=== PATIENT | male | born 2000 | race Caucasian/White ===

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

== ENCOUNTER 2018-01-04 09:59 | Inpatient (IN) | payer BC ==
[2018-01-03 15:15] VITALS: BMI 21.6
[2018-01-04 11:20] LABS: #Eosinphils 0.2 thou/uL (0.0-0.7); #Lymphocytes 1.3 thou/uL (1.20-3.40); #Monocytes 0.7 thou/uL (0.11-0.59); #Neutrophils 3.9 thou/uL (1.40-6.50); %Basophils 0.6 % (0.0-1.0); %Eosinophils 3.5 % (0.0-10.0); %Lymphocytes 20.8 % (28.0-48.0); %Monocytes 10.8 % (0.0-4.0); %Neutrophils 64.3 % (31.0-61.0); Hemoglobin 10.3 g/dL (14.0-18.0); Mean Corpuscular HGB CONC 31.1 g/dL (32.0-36.0); Mean Corpuscular Hemoglobin 22.1 pg (25.0-35.0); Mean Corpuscular Volume 71.2 fl (77.0-87.0); Mean Platelet Volume 9.9 fL (7.4-10.4); Platelet Count 250 thou/uL (130-400); RBC Distribution Width 15.9 % (11.5-14.5); Red Blood Cell (RBC) Count 4.66 mill/uL (4.00-5.20); White Blood Cell (WBC) Count 6.1 thou/uL (4.8-10.8)
[2018-01-04 12:11] LABS: Bacteria/HPF None Seen HPF (None Seen); Hyaline Casts/LPF NONE SEEN LPF (0-3 Hyaline); RBC/HPF None Seen HPF (0-3); Squamous Epithelial 0-3 HPF (0-3); WBC/HPF None Seen HPF (0-3)
[2018-01-04] MEDS ORDERED: cefOXitin 2 GM, Syringe 1 ML in Sterile Water 10 ML SLOW IVP SCH (12:15)
[2018-01-04] MEDS ORDERED: Bupivacaine 0.25% HCL 30 ML VIAL ONE (12:32)
[2018-01-04] MEDS ORDERED: Lidocaine 2% w/Epinephrine 1:200K 20 ML VIAL ONE (12:32)
[2018-01-04] MEDS ORDERED: Fentanyl 100 MCG/2 ML VIAL ONE ×2 (12:41→14:43)
[2018-01-04] MEDS ORDERED: Midazolam HCl 2 mg/2 ml Vial ONE (12:47)
[2018-01-04] MEDS ORDERED: Promethazine HCl 25 MG/ML VIAL IM PRN (15:31)
[2018-01-04] MEDS ORDERED: Ondansetron HCl/PF 4 MG/2 ML Vial IVP PRN (15:31)
[2018-01-04] MEDS ORDERED: hydrALAZINE 20 MG/ML VIAL SLOW IVP PRN (15:31)
[2018-01-04] MEDS ORDERED: cefOXitin 2 GM in Sodium Chloride 0.9% 100 ML IVPB SCH (15:31)
[2018-01-04] MEDS ORDERED: Fentanyl 100 MCG/2 ML VIAL SLOW IVP PRN (15:31)
[2018-01-04] MEDS: Hydrocortisone Sod Succ/PF 100 mg/2 ml Vial IVP SCH (16:05)
[2018-01-04] MEDS: Sodium Chloride 0.9% 1,000 ML IV SCH (16:11)
[2018-01-04] MEDS ORDERED: Glycopyrrolate 0.2 MG/ML 5 ML SYRINGE ONE (16:46)
[2018-01-04] MEDS ORDERED: diphenhydrAMINE 50 MG/ML VIAL ONE (16:46)
[2018-01-04] MEDS ORDERED: Lidocaine 1% PF 5 ML VIAL ONE (16:46)
[2018-01-04] MEDS ORDERED: Propofol 200 MG/20 ML VIAL ONE (16:46)
[2018-01-04] MEDS ORDERED: Ketorolac Tromethamine 30 MG/ML VIAL ONE (16:46)
[2018-01-04] MEDS ORDERED: Dexamethasone 20 MG/5 ML VIAL ONE (16:46)
[2018-01-04] MEDS ORDERED: Ondansetron HCl/PF 4 MG/2 ML Vial ONE (16:46)
--- NOTE | 2018-01-04 16:47 | OP ---
DATE OF PROCEDURE: 01/04/2017 PREOPERATIVE DIAGNOSIS: History of Crohn's disease with ileal stricture, attention to ileostomy. POSTOPERATIVE DIAGNOSIS: History of Crohn's disease with ileal stricture, attention to ileostomy. PROCEDURE: Ileostomy takedown (redo of ileocolonic anastomosis) secondary to ischemic and Crohn's ch anges to the segment of small bowel between the ileostomy in the previous anastomosis. SURGEON: Jadon Robertson M.D. ANESTHESIA: General. ESTIMATED BLOOD LOSS: Minimal. COMPLICATIONS: None. FINDINGS: The segment of small bowel between the ileostomy and the ascending colon anastomosis has c reeping fat. There is significant inflammatory change to the small bowel in this area. Decision was made to remove this area as well as the previous ascending colon anastomosis and perform new ileocol onic anastomosis. TECHNIQUE: The patient was taken to the operating room and placed supine on the table. After genera l anesthetic was obtained, the abdomen was shaved, prepped and draped in a sterile fashion. The ileo stomy segment was ellipsed out from the skin in the right lower quadrant. Cautery was used to dissec t down along the small bowel into the abdomen, minimal intra-abdominal adhesions. The small bowel lo op was able to be brought up in the wound without difficulty. The proximal small bowel has no eviden ce of Crohn's or inflammatory change. The 3-inch segment of small bowel between the ileostomy and th e previous anastomosis has severe sclerotic change creeping fat. It was not felt to be amenable to a nastomosis, so this segment was removed as well as the previous ascending colon anastomosis. FLOR-75 stapler was fired across the colon just proximal to the anastomosis as well as the small bowel just p roximal to the ileostomy. The intervening mesentery was taken using the Impact LigaSure. The small bowel was able to be brought up against the colon in antimesenteric fashion. Enterotomy was made on the antimesenteric surface of each and a otor-oc-mned ascending colon ileocolonic anastomosis was per formed using FLOR stapler. The common enterotomy was closed in two layers using running Vicryl, crotc h stitch was placed using silk suture. The mesenteric defect was closed using silk suture. The stap le line does not appear ischemic. The anastomosis was placed back in the abdominal cavity. The abdo men was irrigated. The posterior fascia was closed using PDS suture. The anterior fascia was closed using PDS suture. The subcutaneous tissues are irrigated. Local anesthetic was applied. The skin was closed using pursestring of Prolene. A Faribault was left in the wound. Sterile dressings are dayron juliana. The patient was en route to recovery in stable condition. All instrument counts, needle counts , and lap counts were correct.
[2018-01-04] MEDS: HYDROcodone/Acetaminophen 10/325 mg Tablet PO PRN (16:52)
[2018-01-04] MEDS: Fentanyl 100 MCG/2 ML VIAL SLOW IVP PRN ×2 (18:14→20:06)
[2018-01-04] MEDS: Acetaminophen 1,000 MG in Premix Bag 1 BAG IVPB SCH (18:14)
[2018-01-04] MEDS: Famotidine/PF 20 mg/2ml Vial SLOW IVP SCH (21:13)
[2018-01-04] MEDS: Famotidine 20 MG TAB PO SCH (21:18)
[2018-01-04] MEDS: cefOXitin 2 GM, Syringe 1 ML in Sterile Water 10 ML SLOW IVP SCH (21:19)
[2018-01-05] MEDS: Fentanyl 100 MCG/2 ML VIAL SLOW IVP PRN ×5 (00:35→16:38)
[2018-01-05] MEDS: Hydrocortisone Sod Succ/PF 100 mg/2 ml Vial IVP SCH ×3 (00:46→16:14)
[2018-01-05] MEDS: Acetaminophen 1,000 MG in Premix Bag 1 BAG IVPB SCH ×3 (00:46→11:32)
[2018-01-05 05:56] LABS: #Lymphocytes 0.9 thou/uL (1.20-3.40); #Monocytes 0.8 thou/uL (0.11-0.59); #Neutrophils 10.9 thou/uL (1.40-6.50); %Lymphocytes 7.5 % (28.0-48.0); %Monocytes 6.6 % (0.0-4.0); %Neutrophils 85.9 % (31.0-61.0); Hemoglobin 9.4 g/dL (14.0-18.0); Mean Corpuscular HGB CONC 30.5 g/dL (32.0-36.0); Mean Corpuscular Hemoglobin 21.5 pg (25.0-35.0); Mean Corpuscular Volume 70.6 fl (77.0-87.0); Mean Platelet Volume 10.4 fL (7.4-10.4); Platelet Count 277 thou/uL (130-400); RBC Distribution Width 16.1 % (11.5-14.5); Red Blood Cell (RBC) Count 4.37 mill/uL (4.00-5.20); White Blood Cell (WBC) Count 12.7 thou/uL (4.8-10.8)
[2018-01-05 06:21] LABS: Anion Gap 11 mmol/L (10-20); BUN (Urea Nitrogen) 11 mg/dL (8.4-21.0); Calc. Creatinine Clearance 114 mL/min (70-130); Calcium 8.9 mg/dL (7.8-10.44); Carbon Dioxide 26 mmol/L (22-29); Chloride 103 mmol/L (98-107); Estimated GFR-MDRD Greater than 90; Glucose 108 mg/dL (70-105); Potassium 3.9 mmol/L (3.5-5.1); Sodium 136 mmol/L (136-145)
[2018-01-05] MEDS: cefOXitin 2 GM, Syringe 1 ML in Sterile Water 10 ML SLOW IVP SCH (06:24)
[2018-01-05] MEDS: Sodium Chloride 0.9% 1,000 ML IV SCH (07:26)
[2018-01-05] MEDS: Enoxaparin Sodium 40 MG/0.4 ML SYRINGE SC SCH (09:02)
[2018-01-05] MEDS: Famotidine 20 MG TAB PO SCH ×2 (09:02→21:37)
[2018-01-05] MEDS: Famotidine/PF 20 mg/2ml Vial SLOW IVP SCH ×2 (10:05→20:34)
--- NOTE | 2018-01-05 10:05 | PDOC.GSPN ---
Surgery Progress Note: Subj - Subjective Patient reports: tolerating liquids well Surgery Progress Note: Obj - Vital signs Vital signs: Vital Signs - Most Recent Temp Pulse Resp BP Pulse Ox 97.5 F L 61 16 103/52 L 98 01/05/18 08:46 01/05/18 08:46 01/05/18 08:46 01/05/18 08:25 01/05/18 08:25 - Physical Exam General: no distress Cardiovascular: regular rate and rhythm Respiratory: clear to auscultation Abdomen: soft, positive bowel sounds Wound: dressing clean,dry,intact Surgery Progress Note: Results - Labs Result Diagrams: 01/05/18 05:01 01/05/18 05:01 Lab results: Laboratory Results - last 24 hr 01/05/18 01/05/18 05:01 05:01 WBC 12.7 H RBC 4.37 Hgb 9.4 L Hct 30.9 L MCV 70.6 L MCH 21.5 L MCHC 30.5 L RDW 16.1 H Plt Count 277 MPV 10.4 Neutrophils % 85.9 H Lymphocytes % 7.5 L Monocytes % 6.6 H Eosinophils % 0.0 Basophils % 0.0 Neutrophils # 10.9 H Lymphocytes # 0.9 L Monocytes # 0.8 H Eosinophils # 0.0 Basophils # 0.0 Sodium 136 Potassium 3.9 Chloride 103 Carbon Dioxide 26 Anion Gap 11 BUN 11 Creatinine 0.87 Estimated GFR (MDRD) Greater than 90 Glucose 108 H Calcium 8.9 Surgery Progress Note: A/P - Problem (1) Crohns disease Current Visit: Yes Code(s): K50.90 - CROHN'S DISEASE, UNSPECIFIED, WITHOUT COMPLICATIONS Status: Acute Assessment and Plan: Full liquids today
[2018-01-05] MEDS: HYDROcodone/Acetaminophen 10/325 mg Tablet PO PRN ×2 (16:14→21:36)
[2018-01-06] MEDS: Hydrocortisone Sod Succ/PF 100 mg/2 ml Vial IVP SCH ×3 (00:54→15:21)
[2018-01-06] MEDS: Famotidine 20 MG TAB PO SCH ×2 (08:15→21:14)
[2018-01-06] MEDS: HYDROcodone/Acetaminophen 10/325 mg Tablet PO PRN ×3 (08:18→21:15)
[2018-01-06] MEDS: Famotidine/PF 20 mg/2ml Vial SLOW IVP SCH ×2 (08:27→19:41)
[2018-01-06] MEDS ORDERED: Milk Of Magnesia 30 ML UDCUP PO ONE (09:12)
--- NOTE | 2018-01-06 09:15 | PDOC.GSPN ---
Surgery Progress Note: Subj - Subjective Narrative: Slightly more bloated today. No nausea but not passing flatus Surgery Progress Note: Obj - Vital signs Vital signs: Vital Signs - Most Recent Temp Pulse Resp BP Pulse Ox 97.7 F 63 16 121/76 99 01/06/18 08:15 01/06/18 08:15 01/06/18 08:15 01/06/18 08:15 01/06/18 08:15 - Physical Exam General: no distress Cardiovascular: regular rate and rhythm Respiratory: clear to auscultation Abdomen: soft, non tender, nondistended, positive bowel sounds Wound: healing well Surgery Progress Note: Results - Labs Result Diagrams: 01/05/18 05:01 01/05/18 05:01 Surgery Progress Note: A/P - Problem (1) Crohns disease Current Visit: Yes Code(s): K50.90 - CROHN'S DISEASE, UNSPECIFIED, WITHOUT COMPLICATIONS Status: Acute Assessment and Plan: Try milk of magnesium. continue full liquids. Likely home tomorrow
[2018-01-06] MEDS: Enoxaparin Sodium 40 MG/0.4 ML SYRINGE SC SCH (09:28)
[2018-01-07] MEDS: Hydrocortisone Sod Succ/PF 100 mg/2 ml Vial IVP SCH ×2 (01:00→09:20)
[2018-01-07] MEDS: Famotidine/PF 20 mg/2ml Vial SLOW IVP SCH (09:21)
[2018-01-07] MEDS: Enoxaparin Sodium 40 MG/0.4 ML SYRINGE SC SCH (09:21)
[2018-01-07] MEDS: Famotidine 20 MG TAB PO SCH (09:21)
[2018-01-07] MEDS: HYDROcodone/Acetaminophen 10/325 mg Tablet PO PRN (09:32)
[2018-01-07 10:09] VITALS: TEMP 97.8
[2018-01-07 13:19] VITALS: BP 109/67
--- NOTE | 2018-01-07 14:02 | PDOC.GSPN ---
Surgery Progress Note: Subj - Subjective Patient reports: no new complaints, tolerating liquids well Surgery Progress Note: Obj - Vital signs Vital signs: Vital Signs - Most Recent Temp Pulse Resp BP Pulse Ox 97.8 F 70 18 109/67 96 01/07/18 12:40 01/07/18 12:40 01/07/18 12:40 01/07/18 12:40 01/07/18 12:40 - Physical Exam General: no distress Respiratory: clear to auscultation Abdomen: soft, non tender, nondistended Wound: healing well Surgery Progress Note: Results - Labs Result Diagrams: 01/05/18 05:01 01/05/18 05:01 Surgery Progress Note: A/P - Problem (1) Crohns disease Current Visit: Yes Code(s): K50.90 - CROHN'S DISEASE, UNSPECIFIED, WITHOUT COMPLICATIONS Status: Acute Assessment and Plan: pod 3, dc home
== END 2018-01-07 15:45 | disposition home or self-care (01) | DRG 330 ==
LOC: SURG A 10:31
PROVIDERS: ADMIT Surgery; ATTEND Surgery
PROC: 0DBB0ZZ Excision of Ileum, Open Approach (ICD-10-PCS; principal; 2018-01-04)
PROC: 0DBK0ZZ Excision of Ascending Colon, Open Approach (ICD-10-PCS; 2018-01-04)
PROC: 0DB80ZZ Excision of Small Intestine, Open Approach (ICD-10-PCS; 2018-01-04)
DX: Z43.2 Encounter for attention to ileostomy (principal); K50.90 Crohn's disease, unspecified, without complications
CPT/HCPCS: 36415; 80048; 81015; 85025; 88304; A4216; J0131; J0694; J1100; J1200; J1650; J1720; J1885; J2001; J2250; J2405; J2704; J3010; S0020; S0028

== ENCOUNTER 2019-01-14 11:36 | Observation (INO) | payer BC ==
[2019-01-14 12:21] LABS: Bilirubin Small (Negative); Blood, Urine Negative (Negative); Clarity CLEAR (Clear); Glucose, Urine (Dipstick) Negative (Negative); Leukocyte Negative (Negative); Nitrite Negative (Negative); Protein, Urine (Dipstick) Trace mg/dL (Neg-Trace); Specific Gravity, Urine 1.033 (1.002-1.036); Urobilinogen 0.2 mg/dL (0.2-1.0); pH, Urine 5.5 (5.0-9.0)
[2019-01-14 13:10] LABS: ALT (SGPT) 15 U/L (8-55); AST (SGOT) 20 U/L (5-34); Albumin 4.3 g/dL (3.5-5.0); Alkaline Phosphatase 79 U/L (Less than 750); Anion Gap 10 mmol/L (10-20); BUN (Urea Nitrogen) 12 mg/dL (8.9-20.6); Bilirubin, Total 0.6 mg/dL (0.2-1.2); Calc. Creatinine Clearance 0 mL/min (70-130); Calcium 9.3 mg/dL (7.8-10.44); Carbon Dioxide 27 mmol/L (22-29); Chloride 107 mmol/L (98-107); Estimated GFR-MDRD Greater than 90; Globulin 2.5 g/dL (2.4-3.5); Glucose 94 mg/dL (70-105); Lipase 13 U/L (8-78); Potassium 3.8 mmol/L (3.5-5.1); Protein, Total 6.8 g/dL (6.0-8.3); Sodium 140 mmol/L (136-145)
[2019-01-14 13:16] LABS: #Basophils 0.1 thou/uL (0.0-0.2); #Eosinphils 0.1 thou/uL (0.0-0.7); #Lymphocytes 1.5 thou/uL (1.20-3.40); #Monocytes 0.5 thou/uL (0.11-0.59); %Basophils 1.4 % (0.0-1.0); %Eosinophils 2.7 % (0.0-10.0); %Monocytes 9.5 % (0.0-4.0); %Neutrophils 58.4 % (31.0-61.0); Elliptocytes SLIGHT = 2-5 cells (100X) (0-1/hpf); Eosinophils 1 % (0-10); Hemoglobin 6.7 g/dL (14.0-18.0); Hypochromia MODERATE=16-30 cells (100X) (0-5/hpf); Lymphocytes 24 % (28-48); MDiff Complete? YES; Mean Corpuscular HGB CONC 26.5 g/dL (32.0-36.0); Mean Corpuscular Hemoglobin 15.4 pg (25.0-35.0); Mean Platelet Volume 6.5 fL (7.4-10.4); Microcytosis MARKED = >30 cells (100X) (0-5/hpf); Monocytes 10 % (0-4); Neutrophil 65 % (31-61); Ovalocytes MODERATE= 6-15 cells (100X) (0-1/hpf); Platelet Count 410 thou/uL (130-400); Platelet Morphology Comment Appears Increased; Polychromasia SLIGHT = 2-3 cells (100X) (0-2/hpf); RBC Distribution Width 20.8 % (11.5-14.5); Red Blood Cell (RBC) Count 4.38 mill/uL (4.00-5.20); Reflex for Review?? YES; White Blood Cell (WBC) Count 5.2 thou/uL (4.8-10.8)
[2019-01-14] MEDS ORDERED: methylPREDNISolone Sod Succ/PF 125 MG/2 ML VIAL ONE (14:06)
[2019-01-14] MEDS ORDERED: diphenhydrAMINE 50 MG/ML VIAL ONE (14:06)
[2019-01-14] MEDS ORDERED: Famotidine/PF 20 mg/2ml Vial ONE (14:06)
[2019-01-14] MEDS ORDERED: Ondansetron PF 4 MG/2 ML Vial ONE (14:18)
[2019-01-14] MEDS ORDERED: Morphine 4 MG/ML VIAL ONE (14:18)
[2019-01-14 17:11] LABS: Iron 11 ug/dL (65-175); Iron Binding Capacity, Total 445 mcg/dL (261-462)
[2019-01-14 17:12] LABS: Iron 8 ug/dL (65-175); Iron Binding Capacity, Total 413 mcg/dL (261-462)
[2019-01-14 18:25] VITALS: BMI 21.6
[2019-01-14] MEDS ORDERED: Ondansetron PF 4 MG/2 ML Vial IVP PRN (18:25)
[2019-01-14] MEDS ORDERED: Guaifenesin DM 100-10/5 ML UDCUP PO PRN (18:25)
[2019-01-14] MEDS ORDERED: Acetaminophen 650 MG Suppository PR PRN (18:25)
[2019-01-14] MEDS ORDERED: Acetaminophen 325 MG TAB PO PRN (18:25)
[2019-01-14] MEDS ORDERED: Senokot S 8.6-50 MG TAB PO PRN (18:25)
[2019-01-14] MEDS ORDERED: Morphine 4 MG/ML VIAL SLOW IVP PRN (18:25)
[2019-01-14] MEDS ORDERED: Ondansetron ODT 4 MG TAB PO PRN (18:25)
[2019-01-14] MEDS ORDERED: Sodium Chloride 0.9% 1,000 ML IV SCH (18:53)
[2019-01-14] MEDS ORDERED: Hydrocortisone Sod Succ/PF 100 mg/2 ml Vial IVP SCH (19:00)
[2019-01-14] MEDS ORDERED: Famotidine/PF 20 mg/2ml Vial SLOW IVP SCH (19:00)
[2019-01-14] MEDS ORDERED: diphenhydrAMINE 50 MG/ML VIAL IVP SCH (19:00)
[2019-01-14] MEDS ORDERED: predniSONE 50 MG TAB PO SCH (22:15)
--- NOTE | 2019-01-15 00:56 | HP ---
PRIMARY CARE PHYSICIAN: Zeus Yeung. PRIMARY OUTPATIENT DIRECTOR FINANCIAL SYSTEMS: Dr. Mcneill. CHIEF COMPLAINT: Abdominal pain and dyspnea on exertion. HISTORY OF PRESENT ILLNESS: This is a 18-year-old white male with a known history of Crohn disease, diagnosed a little over a year ago. He had an ileostomy done at that time for an abscess and later had a reversal done by Dr. Robertson. The patient has been followed by Dr. Mcneill, was initially on some iron for iron-deficiency anemia. The patient eventually tried to eat a lot of green vegetables and stopped his iron. He has not had followup blood work in some time. The patient reports that yesterday at about 5:00 p.m. about an hour after eating, he developed right lower quadrant pain. The pain was persistent, stabbing sort of sensation. It was fairly bad at first and then eased off, and it was constant overnight. Early this morning, he had some nausea. He also started having dyspnea on exertion when he was going to his classes today. He ate some oatmeal for breakfast, which made his pain worse and which made the nausea worse. He did not have any vomiting. The pain worsened over the course of the day and so, he came into the hospital. In the ER, he had morphine which has almost resolved the pain. He was going to have a CT scan done, however, he has had an iodine allergy that was fairly significant and so, they are recommending a prolonged inpatient prep. Dr. Osborne was contacted by the Emergency Room, I believe cofferdam construction supervisor for Dr. Mcneill and agreed with the plan. The patient was also found to have a hemoglobin of 6.7 and have significant pallor. He has not noticed any bloody bowel movements or black tarry stools. His stools have been a little loose for the last couple of days and so, he is receiving 1 unit of packed red blood cells in the emergency room. PAST MEDICAL HISTORY: Crohn's disease. PAST SURGICAL HISTORY: 1. Ileostomy for abscess, complication of Crohn disease. 2. Ileostomy reversal with small bowel resection. SOCIAL HISTORY: The patient denies tobacco. He drinks 3 to 4 four drinks about twice a month. No regular alcohol. No illicit drugs. The patient is a student at [employer] . 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 His medical decision maker should he be incapacitated would be his parents, Rubén Hutchison and Claudine Hutchison. ALLERGIES: IODINATED CONTRAST. CURRENT MEDICATIONS: None. REVIEW OF SYSTEMS: CONSTITUTIONAL: No fevers. No chills. EYES: No double vision or blurred vision. ENT: No congestion, drainage, or sore throat. CARDIOVASCULAR: No chest pain. No palpitations or racing heart. PULMONARY: No coughing, wheezing, or shortness of breath. GASTROINTESTINAL: See HPI. GENITOURINARY: No dysuria or hematuria. MUSCULOSKELETAL: No muscle aches or joint pains. SKIN: No rashes or other lesions noted. NEUROLOGIC: No numbness, tingling, or focal weakness. PHYSICAL EXAMINATION: VITAL SIGNS: Blood pressure 114/61, pulse 63, respirations 16, temperature 98.4, and O2 saturation 100% on room air. GENERAL: This is a well-developed, well-nourished white male, who appears very pale. HEENT: Pupils are equal, round, and reactive to light. He has very pale palpebral conjunctiva. Oropharynx clear without lesions, erythema, or exudate. NECK: Supple. No lymphadenopathy. No thyroid nodules or enlargement. No JVD. HEART: Regular rate and rhythm. No murmurs, rubs, or gallops. LUNGS: Clear to auscultation bilaterally. No wheezes, crackles, or rhonchi. ABDOMEN: Soft, tender to palpation in the right lower quadrant over his previous ileostomy scar. He does have some mild guarding there. No masses. No rebound tenderness. Normoactive bowel sounds. No hepatosplenomegaly. EXTREMITIES: No clubbing, cyanosis, or edema. SKIN: No rashes or other lesions noted. NEUROLOGIC: He has intact strength and sensation in all extremities. No facial droop. LABORATORY DATA: CBC with a white blood cell count of 5.2, hemoglobin 6.7, hematocrit 25.4, MCV of 58, platelet count 410. Complete metabolic panel is within normal limits. His iron was 8, total iron-binding capacity is 413, percent saturation is 2%, ferritin was low at 3.18. Urinalysis was negative for infection. ASSESSMENT: 1. Right lower quadrant pain in the setting of Crohn disease and previous intraabdominal abscess concerning for development of another abscess. The patient has normal white blood cell count at this time. No fevers. We will hold off on any antibiotics at this time. The patient is getting a unit of blood in the emergency room. We will recheck blood work after that. We will continue prolonged pretreatment, so he can get his CT scan with IV contrast tomorrow morning. Dr. Osborne was already informed by the Emergency Room. We will put in the consult for Gastroenterology. 2. Severe iron deficiency anemia, maybe multifactorial. However, concerned for possibility of GI bleeding, likely from his Crohn disease. We will recheck H and H after his transfusion, and we will continue to transfuse as needed. We will start the patient on iron as soon as CT scan determine if he will need any sort of procedures for which he will need to be n.p.o. 3. Gastrointestinal prophylaxis, put the patient on Pepcid twice a day. 4. Deep venous thrombosis prophylaxis. We will put the patient on SCDs while in bed. 5. Code status. The patient is a full code. Job ID: [id number]
[2019-01-15] MEDS: predniSONE 50 MG TAB PO SCH ×2 (01:59→07:45)
[2019-01-15 06:00] LABS: Anion Gap 11 mmol/L (10-20); BUN (Urea Nitrogen) 14 mg/dL (8.9-20.6); Calc. Creatinine Clearance 131 mL/min (70-130); Calcium 9.1 mg/dL (7.8-10.44); Carbon Dioxide 26 mmol/L (22-29); Chloride 106 mmol/L (98-107); Estimated GFR-MDRD Greater than 90; Glucose 112 mg/dL (70-105); Potassium 4.1 mmol/L (3.5-5.1); Sodium 139 mmol/L (136-145)
[2019-01-15 06:07] LABS: #Lymphocytes 0.7 thou/uL (1.20-3.40); #Neutrophils 4.7 thou/uL (1.40-6.50); %Basophils 0.1 % (0.0-1.0); %Lymphocytes 12.3 % (28.0-48.0); %Monocytes 0.6 % (0.0-4.0); Hemoglobin 7.7 g/dL (14.0-18.0); Mean Corpuscular HGB CONC 27.9 g/dL (32.0-36.0); Mean Corpuscular Hemoglobin 16.9 pg (25.0-35.0); Mean Corpuscular Volume 60.5 fL (78.0-98.0); Mean Platelet Volume 6.8 fL (7.4-10.4); Platelet Count 381 thou/uL (130-400); RBC Distribution Width 24.5 % (11.5-14.5); Red Blood Cell (RBC) Count 4.53 mill/uL (4.00-5.20); White Blood Cell (WBC) Count 5.4 thou/uL (4.8-10.8)
[2019-01-15] MEDS ORDERED: diphenhydrAMINE 50 MG CAP PO SCH (08:00)
--- NOTE | 2019-01-15 08:25 | PDOC.PN ---
- Subjective Encounter Start Date: 01/15/19 Encounter Start Time: 10:30 Subjective: Patient with resolution of LLQ pain. No N/V. No fever. CT still pending. - Objective Resuscitation Status - Order Detail: 01/14/19 17:58 Resuscitation Status Routine Resuscitation Status: FULL: Full Resuscitation MAR Reviewed: Yes Vital Signs & Weight: Vital Signs (12 hours) Temp Pulse Pulse Resp BP BP Pulse Ox 01/15/19 07:17 97.8 F 62 14 102/49 L 99 01/15/19 01:59 97.8 F 62 16 112/53 L 99 01/14/19 23:58 98.6 F 69 15 119/58 L 99 01/14/19 21:56 98.1 F 65 16 123/64 99 Weight Weight 129 lb 12.8 oz I&O: 01/14/19 01/15/19 01/16/19 06:59 06:59 06:59 Intake Total 1340 Balance 1340 Result Diagrams: 01/15/19 04:51 01/15/19 04:51 Phys Exam - Physical Examination Constitutional: NAD HEENT: moist MMs Respiratory: no wheezing, no rales, no rhonchi Cardiovascular: RRR, no significant murmur Gastrointestinal: soft, non-tender, positive bowel sounds Neurological: non-focal, moves all 4 limbs Psychiatric: normal affect, A&O x 3 Dx/Plan (1) Abdominal pain Code(s): R10.9 - UNSPECIFIED ABDOMINAL PAIN Status: Acute Qualifiers: Abdominal location: right lower quadrant Qualified Code(s): R10.31 - Right lower quadrant pain Comment: concern for possible recurrent crohn's abscess, CT pending, pretreatment due to iodine allergy (2) Crohns disease Code(s): K50.90 - CROHN'S DISEASE, UNSPECIFIED, WITHOUT COMPLICATIONS Status: Chronic (3) Iron deficiency anemia Code(s): D50.9 - IRON DEFICIENCY ANEMIA, UNSPECIFIED Status: Acute Comment: better after transfusion, will start oral iron supplementation before discharge - Plan cont current plan of care, DVT proph w/SCDs GI consult pending * . - Discharge Day Encounter end time: 10:40
[2019-01-15] MEDS ORDERED: predniSONE 50 MG TAB PO SCH (14:00)
[2019-01-15 15:55] VITALS: BP 116/54; TEMP 98.1
--- NOTE | 2019-01-15 16:21 | CT ---
CT ABDOMEN AND PELVIS WITH IV CONTRAST: HISTORY: History of Crohn's disease and right-sided abdominal pain. COMPARISON: Prior noncontrast CT dated 12/28/[address] abdomen and pelvis with contrast dated 10/13/2017. FINDINGS: The previously seen right lower quadrant ileostomy has been taken down. The ileocolonic anastomotic in the right lower quadrant appears within normal limits. No overt bowel wall thickening or drainabl e fluid collection is evident. A tiny amount of free fluid is seen within the pelvis. There is a mi ld amount of retained stool within the colon. The previously seen right-sided hydronephrosis has resolved. The distal right ureteral calculus has passed. There are bilateral extrarenal pelves in both kidneys. The liver, spleen, pancreas, and adr enal glands appear within normal limits. No acute osseous abnormality is evident. IMPRESSION: 1. Interval takedown of right lower quadrant ileostomy. 2. No overt bowel wall thickening or drainable fluid collection is evident. 3. Mild free fluid in the pelvis. 4. Other findings as above. POS: [facility]
--- NOTE | 2019-01-15 20:14 | CON ---
DATE OF CONSULTATION: 01/15/2019 CHIEF COMPLAINT: Abdominal pain. HISTORY OF PRESENT ILLNESS: Mr. Hutchison is a 18-year-old man with Crohn's disease, who presented to the emergency room last night with right lower quadrant pain. He reported right lower quadrant aching to cramping pain that started two days ago. The pain felt similar to the pain that he had when he had an abscess a year ago when his Crohn's presented. The pain was not severe, rating it around 4/10. He went to the emergency room and was given a dose of morphine. His pain completely resolved, and he has had no further pain since two o'clock yesterday afternoon. Had some nausea. No vomiting. No fever. No diarrhea, constipation, or blood in the stool. His weight has been stable. He was last seen in the office by Dr. Mcneill, around May or June. He did travel after that, but he has continued receiving Remicade, and while he was traveling, he did have two doses that were nine weeks apart rather than eight weeks apart, and he flew back here to get those infusions. He has had been doing well otherwise since his bowel resection and ileostomy takedown. PAST MEDICAL HISTORY: 1. Crohn's disease. He was diagnosed in June of 2017. He presented with abscess. He underwent a small bowel resection and diverting ileostomy. He had ileostomy takedown around December of 2017 and has been doing well since then on Remicade monotherapy. 2. Iron deficiency anemia. PAST SURGICAL HISTORY: Small bowel resection and anastomosis and later ileostomy takedown. FAMILY HISTORY: Negative for GI malignancy or inflammatory bowel disease. SOCIAL HISTORY: He drinks three or four beers a month. He has an occasional cigarette socially. No drugs. ALLERGIES: IODINATED CONTRAST. CURRENT OUTPATIENT MEDICATIONS: Include Remicade infusions every eight weeks. REVIEW OF SYSTEMS: Negative x10 systems reviewed except as stated in history of present illness. PHYSICAL EXAMINATION: VITAL SIGNS: Temperature 98.3, pulse 79, blood pressure 116/58. GENERAL: He is in no acute distress. Alert and oriented x3. HEENT: Eyes have no scleral icterus. Oropharynx is clear without lesions. No cervical or supraclavicular lymphadenopathy. LUNGS: Clear to auscultation bilaterally. HEART: Regular rate and rhythm without murmur. ABDOMEN: Soft, nontender, and nondistended. Bowel sounds are present. EXTREMITIES: No lower extremity edema. NEUROLOGIC: Cranial nerves are grossly intact. LABORATORY DATA: White blood cell count 5.2 on presentation, hemoglobin was 6.7 on presentation, improved to 7.7 after 1 unit transfusion, platelets 381. Creatinine 0.75. Iron 8, TIBC 413, ferritin 3. LFTs are normal. Lipase is normal. IMPRESSION: 1. Small-bowel Crohn disease presenting previously with intraabdominal abscess, status post resection of the small bowel. Followup colonoscopy after resection showed no active disease and his fecal calprotectin was normal. Clinically, he has remained in remission, on Remicade every eight weeks. His right lower quadrant pain is now due to an acute flare. He was concerned about recurrence of abscess given the similar pain. At this point, he has pain free. His white blood cell count is normal. He is nontender to exam. 2. Iron deficiency anemia. His hemoglobin was 7.7 back in May. He took iron for a couple months, and his hemoglobin improved to 9.7, but now he is back presenting with symptomatic anemia to the ER with some shortness of breath on exertion prior to transfusion yesterday. He feels better after 1 unit transfusion. The source of the anemia is not clear. He could have ulcerations from active Crohn's versus peptic ulcer or celiac disease. RECOMMENDATIONS: 1. We will follow through with CT scan of the abdomen and pelvis. He has been premedicated with steroids for the CT. Given his prior abscess and possibility of active small-bowel disease with scopes cannot reach given the ongoing iron-deficiency anemia, the CT would be helpful. 2. Recommend upper and lower endoscopy to evaluate iron deficiency anemia and evaluate for active inflammatory bowel disease. After CT scan today, he can likely be discharged home and then do a bowel prep in the morning and come back to the office for an outpatient endoscopy tomorrow afternoon. 3. He will continue Remicade. For now, I would avoid any additional steroids or antibiotics. 4. Following endoscopy, he can start iron supplementation. Job ID: [id number]
--- NOTE | 2019-01-16 02:55 | DIS ---
DATE OF ADMISSION: 01/14/2019 DATE OF DISCHARGE: 01/15/2019 PRIMARY CARE PHYSICIAN: None. PRIMARY SPECIAL WARFARE BOAT OPERATOR: Dr. Mcneill. REASON FOR ADMISSION: Abdominal pain and anemia. DIAGNOSES AT DISCHARGE: 1. Abdominal pain, resolved with normal CT. 2. Crohn's disease. 3. Acute on chronic iron deficiency anemia, improved after transfusion. PROCEDURES: CT of the abdomen and pelvis with IV contrast showing interval takedown of the right lower quadrant ileostomy. No overt bowel wall thickening or drainable fluid collection. Mild free fluid in the pelvis. No other significant findings. CONSULTATION: Gastroenterology, Dr. Arana. PERTINENT LABORATORY: The patient's hemoglobin was 6.7 on admission, up to 7.7 at discharge. Total iron was 8, total iron binding capacity was 413%, saturation was 2, and ferritin was low at 3.18. SUMMARY OF HOSPITAL COURSE: This is a 18-year-old white male with a known history of Crohn disease diagnosed a little over a year ago with right lower quadrant abscess. He had an ileostomy done at that time and later had a reversal along with partial small bowel resection. The patient follows with Dr. Mcneill, has had some chronic iron deficiency anemia, was on iron at home, but he stopped taking that and just tried to eat lot of greens to improve his iron. The patient came in with abdominal pain starting about 5:00 p.m. about an hour after eating and his right lower quadrant was fairly severe, persisted over the course of the next day and so, he came to the emergency room. In the ER, he had a single dose of morphine. After that, the pain resolved and did not come back. He had some nausea. No vomiting. It also resolved and has not come back. His hemoglobin was found to be 6.7. He had a single unit of transfusion of blood and it went up to 7.7. He had had some shortness of breath that resolved after the transfusion. The patient was seen by Dr. Arana. He recommended EGD and colonoscopy, which could be done in the outpatient setting. We got the CT scan, which did not show any abscess or active infection, so patient is being discharged home. DISCHARGE MANAGEMENT: Discharged home. Continue clear liquid diet right now and spanish moss picker the prep called into the pharmacy by Dr. Arana to take tomorrow morning if he has EGD and colonoscopy tomorrow in the clinic. ACTIVITY: As tolerated. DIET: Clear liquid diet. MEDICATIONS: 1. Take medications as prescribed by Dr. Arana along with after finishing his EGD and colonoscopy, he is to take iron pills. He still has some at home. He is to take one of them 3 times a day to be taken 1-hour before food and to be taken with a small amount of vitamin C containing juice to help with absorption. 2. Colace 100 mg twice a day to be taken while on iron 60 caps dispensed. 3. Senna 8.6 mg tablets, 2 tablets at night as needed for constipation, 30 tablets dispensed. Job ID: [id number]
== END 2019-01-15 17:55 | disposition home or self-care (01) ==
LOC: ERS 11:36 → 2SW 16:30
PROVIDERS: ADMIT Emergency Medicine; ATTEND Emergency Medicine
DX: R10.31 Right lower quadrant pain (principal); R06.00 Dyspnea, unspecified; D50.9 Iron deficiency anemia, unspecified; I10 Essential (primary) hypertension; F17.210 Nicotine dependence, cigarettes, uncomplicated; Z79.899 Other long term (current) drug therapy; Z91.041 Radiographic dye allergy status
CPT/HCPCS: 36415; 36430; 74177; 80048; 80053; 81003; 82728; 83540; 83550; 83690; 85025; 85060; 86850; 86900; 86901; 96361; 96374; 96375; 96376; G0378; J1200; J2270; J2405; J2930; P9016; S0028